=== PATIENT | female | born 1990 | race Two or more races ===

== ENCOUNTER 2024-04-04 11:04 | Emergency (ER) | payer OTHER ==
[~2024-04-04] VITALS: Ht 157.5 cm; Wt 74.1 kg
--- NOTE | 2024-04-04 11:24 | ED.PDOC ---
GI ASSESSMENT HPI Comments HPI: Poor Historian. 33-year-old female presents to the emergency department for evaluation of one day history of epigastric pain nonradiating intermittent. No particular alleviating or precipitating factors. Never had this kind of pain before. Denies any associated nausea or vomiting. Denies any chest pain or shortness of breath. Denies any . Vitals: respiratory rate 16, SpO2 of 98%RA, pulse rate of 76, and a blood pressure of 133/44 PMHx: pre-DM PSHx: denies REVIEW OF SYSTEMS: CONSTITUTIONAL: Denies acute: fever, diaphoresis, chills, generalized weakness. HEAD: Denies acute: headache, photophobia Eyes: Denies acute: Double vision, vision loss, eye pain, eye discharge. EARS: Denies acute: tinnitus, hearing loss, ear discharge, ear pain, THROAT: Denies acute: sore throat, swelling, difficulty swallowing , pain with swallowing, change in voice. NECK: Denies acute: neck pain, neck swelling, stiff neck. HEART: Denies acute : chest pain, palpitations, LUNGS: Denies acute: SOB, wheezing, cough, hemoptysis ABDOMEN: Denies acute: Nausea, Vomiting, melena , hematemesis, hematochezia SKIN: Denies acute: rash, redness, lesions, itchiness. EXTREMITIES: Denies acute: calf pain, numbness, tingling, weakness, denies pain in extremity. Denies acute: Low back pain. Neuro: Denies acute: focal neurological deficit, motor or sensory focal neurological deficit, tremors, seizure like activity, confusion, dizziness, change in mental status, loss of bowel or bladder function, cauda equina like symptoms. : Denies acute: dysuria, hematuria, flank pain, increase in urinary frequency. PSYCH: Denies acute: hallucination, suicidal ideation, homicidal ideation. FEMALE: Denies acute: abnormal vaginal bleeding, foul odor, unusual discharge. PHYSICAL EXAM: General: no acute distress, awake and alert. Head: normocephalic, atraumatic. Neck: supple, trachea is midline, no swelling. Throat: Normal phonation. Eyes:, no erythema, no purulent discharge, no proptosis, no icterus. Heart: regular rate, regular rhythm, no significant murmur appreciated. Lungs: no apparent respiratory distress, Able to speak in full sentences. No wheezing, no rhonchi, no crackles. No stridors Clear to auscultation bilaterally. Abdomen: Epigastric tender to palpation, non distended, soft, no guarding, no rebound, + bowel sounds. Neuro: Awake, Alert, oriented to name, self, situation, follows commands GCS=15. Speech is normal. Skin: no petechia, no purpura, no cyanosis, non-pale, not jaundice. Lower extremities: --no - Pitting edema no deformity, no focal swelling, no calf TTP. Makes eye contact. moves all four extremities. Face: no apparent facial droop. Ambulating in the ED independently. Time Seen by MD: 11:20 Reviewed Notes: Nurses Notes, Medications, Allergies Allergies: Coded Allergies: No Known Drug Allergy (Verified Allergy, Unknown, 04/04/24) Information Source: Patient Was a procedure done? Was a procedure done?: No GI differential Dx Differential Diagnosis: Other (DDX include Diverticulitis, colitis, gastroenteritis, acute abdomen, SBO, enteritis, constipation, volvulus, appendicitis, Gallbladder disease, choledocolithiasis, ascending cholangitis, pancreatitis, intraAbdominal mass/neoplasm, hepatitis, UTI, pylonephritis, kidney stone, aneurysm, dissection, Inflammatory bowel disease, gastroparesis, ischemic bowel, ovarian torsion, ovarian cyst/mass, tubo-ovarian abscess, , ectopic , PID, STD.) X-Ray, Labs, Meds, VS Vital Signs Date Time Temp Pulse Resp B/P (MAP) Pulse Ox O2 Delivery O2 Flow Rate FiO2 04/04/24 20:17 98.3 74 16 138/99 (112) 100 98.3 04/04/24 19:47 74 16 100 Room Air* 0 21 04/04/24 18:40 72 16 98 Room Air 04/04/24 18:40 98.7 72 16 125/83 (97) 98 98.7 04/04/24 11:26 98.1 76 16 133/94 (107) 98 Lab Test 04/04/24 11:44 04/04/24 11:22 Range/Units White Blood Count 15.1 H 4.4-10.8 10^3/uL Red Blood Count 4.88 4.0-5.20 10^6/uL Hemoglobin 12.8 12.2-16.2 g/dL Hematocrit 39.2 36.0-46.0 % Mean Corpuscular Volume 80.3 80.0-100.0 fL Mean Corpuscular Hemoglobin 26.1 L 28.0-32.0 pg Mean Corpuscular Hemoglobin Concent 32.5 32.0-36.0 g/dL Red Cell Distribution Width 13.9 11.8-14.3 % Platelet Count 427 140-450 10^3/uL Mean Platelet Volume 7.9 6.9-10.8 fL Neutrophils (%) (Auto) 80.7 H 37.0-80.0 % Lymphocytes (%) (Auto) 11.9 10.0-50.0 % Monocytes (%) (Auto) 6.5 0.0-12.0 % Eosinophils (%) (Auto) 0.6 0.0-7.0 % Basophils (%) (Auto) 0.3 0.0-2.0 % Neutrophils # (Auto) 12.2 H 1.6-8.6 10 ^3/uL Lymphocytes # (Auto) 1.8 0.4-5.4 10 ^3/uL Monocytes # (Auto) 1.0 0-1.3 10 ^3/uL Eosinophils # (Auto) 0.1 0-0.8 10 ^3/uL Basophils # (Auto) 0 0-0.2 10 ^3/uL Nucleated Red Blood Cells 0.0 % Sodium Level 136 136-145 mmol/L Potassium Level 3.7 3.5-5.1 mmol/L Chloride Level 105 98-107 mmol/L Carbon Dioxide Level 25 20-31 mmol/L Anion Gap 6 5-15 Blood Urea Nitrogen 9 9-23 mg/dL Creatinine 0.59 0.550-1.02 mg/dL Glomerular Filtration Rate Calc 122 >90 mL/min BUN/Creatinine Ratio 15.3 10.0-20.0 Serum Glucose 107 H 74-106 mg/dL Lactic Acid Level 1.5 0.4-2.0 mmol/L Calcium Level 9.8 8.7-10.4 mg/dL Total Bilirubin 0.4 0.2-1.0 mg/dL Aspartate Amino Transferase (AST) 266 H 13-40 U/L Alanine Aminotransferase (ALT) 143 H 7-40 U/L Alkaline Phosphatase 130 H 46-116 U/L Troponin I High Sensitivity < 3 L </=34 ng/L Total Protein 8.1 5.7-8.2 g/dL Albumin 4.7 3.2-4.8 g/dL Lipase 46 12-53 U/L Beta HCG, Quantitative 0.2 L 1.5-4.2 mIU/mL Urine Color Light-yellow Yellow Urine Clarity Clear Clear Urine pH 5.5 5.0-9.0 Urine Specific [place] 1.014 1.001-1.035 Urine Protein Negative Negative Urine Ketones Negative Negative Urine Blood Negative Negative /uL Urine Nitrite Negative Negative Urine Bilirubin Negative Negative Urine Urobilinogen Normal Negative mg/dL Urine Leukocyte Esterase Negative Negative /uL Urine RBC <1 0 - 4 /hpf Urine WBC 1 0 - 5 /hpf Urine Squamous Epithelial Cells Few <5 /hpf Urine Bacteria Few H None Seen /hpf Urine Mucus Few None Seen Urine Glucose Normal Normal mg/dL Current Medications Medications (Trade) Dose Ordered Sig/Blanco Route Start Time Stop Time Status Last Admin Acetaminophen/ Hydrocodone Bitart (Bodfish 5/325MG Tab) 1 tab ONCE ONCE PO 04/04/24 17:15 04/04/24 19:35 DC 04/04/24 20:12 Pantoprazole Sodium (Protonix) 40 mg ONCE ONCE IV 04/04/24 17:15 04/04/24 19:35 DC 04/04/24 20:12 [place] [id number] Ph: [phone] DIAGNOSTIC IMAGING Diagnostic Imaging Report : [id number] Signed PATIENT: DADA MENDEZ ACCT: [id number] UNIT: [id number] : 1990 LOC: ER ROOM / BED: / AGE / SEX: 33 / F ADM STATUS: REG ER SERVICE 1124 ORDERING PHYSICIAN: MICHAEL CH DO PROCEDURE(s): ABDL - ABDOMEN LIMITED REASON: epig pain ORDER NUMBER(s): [id number], ACCESSION NUMBER(s): [id number] INDICATION: epig pain TECHNIQUE: Multiple real-time sonographic images were obtained of the right upp er quadrant. COMPARISON: None FINDINGS: The liver demonstrates increased echotexture without focal mass lesions. The liver measures 18.4 cm. There is no intrahepatic or extrahepatic ductal dilatation. The common duct measures 0.2 cm. Cholelithiasis. The gallbladder wall measures 0.3 cm and is within normal limits. The right kidney measures 11.2 cm. The right kidney is normal in contour, size, and shape. The echogenicity is normal. There is no hydronephrosis. The pancreas is not well visualized due to overlying bowel gas. IMPRESSION: Cholelithiasis. Hepatic steatosis and hepatomegaly. ATED BY: NASIM GODOY MD DICTATED DATE/TIME: 04/04/241213 SIGNED BY: NASIM GODOY MD SIGNED DATE/TIME: 04/04/241213 CC: Time of 1ST Reevaluation: 11:20 Reevaluation 1ST: Unchanged Time of 2ND Reevaluation: 17:04 (The case was discussed with the [facility] admitting team (HPI, physical exam, labs and diagnostic tests that were available at the time of disposition, ED course, treatment plan) on the phone. They agreed to transfer the patient to their service and assume care of this patient from this point forward. dr.- Rodriguez.Authorization number [id number] ) Reevaluation 2ND: Improved Patient Education/Counseling: Diagnosis, Treatment Family Education/Counseling: No Family Present Comments Patient presented with the above HPI.---abdominal pain---workup was initiated. patient was found with the above mentioned diagnosis. Patient was given: Protonix, Bodfish, Zosyn Patient ED course and VS have been stabilized. Patient has been reassessed in the ED and remained in a stable condition. Pertinent incidental findings were discussed with the patient and/or family. Patient/family voices understanding and is agreeable with plan. Patient has been observed in the ED adequate length of time to insure improvement/stability. patient was transferred to [facility] per insurance requirements for further evaluation and treatment of their presentation. All the reports of any imaging studies that were ordered by myself were reviewed by myself. Departure 1 Departure Time of Disposition: 11:54 Impression: Primary Impression: Epigastric pain Additional Impression: Elevated LFTs Disposition: ADMITTED INPATIENT Admit to: [facility] Condition: Guarded Discharged With: Self Critical Care Note Critical Care Time?: No I personally scribed for MICHAEL CH DO ([email or web address]) on 11/13/24 at 11:24. Electronically submitted by Sunny Donaldson ([email or web address]). I personally scribed for MICHAEL CH DO ([email or web address]) on 04/04/24 at 11:25. Electronically submitted by Sunny Donaldson ([email or web address]). I personally scribed for MICHAEL CH DO ([email or web address]) on 04/04/24 at 12:06. Electronically submitted by Sunny Donaldson ([email or web address]). I personally scribed for MICHAEL CH DO ([email or web address]) on 04/04/24 at 12:29. Electronically submitted by Sunny Donaldson ([email or web address]). I personally scribed for MICHAEL CH DO ([email or web address]) on 04/04/24 at 20:21. Electronically submitted by Sunny Donaldson ([email or web address]). MICHAEL CH DO Apr 04, 2024 11:24
[2024-04-04 12:01] LABS: Urine Bacteria FEW /hpf (None Seen); Urine Blood Negative /uL (Negative); Urine Clarity Clear (Clear); Urine Color Light-Yellow (Yellow); Urine Mucus FEW (None Seen); Urine Protein, UAD Negative (Negative); Urine Specific Gravity 1.014 (1.001-1.035); Urine Urobilinogen Normal (Negative); Urine WBC 1 /hpf (0 - 5); Urine pH 5.5 (5.0-9.0)
[2024-04-04 12:13] LABS: Basophils # (auto) 0 10 ^3/uL (0-0.2); Basophils % (auto) 0.3 % (0.0-2.0); Eosinophils # (auto) 0.1 10 ^3/uL (0-0.8); Eosinophils % (auto) 0.6 % (0.0-7.0); Hematocrit 39.2 % (36.0-46.0); Hemoglobin 12.8 g/dL (12.2-16.2); Lymphocytes # (auto) 1.8 10 ^3/uL (0.4-5.4); Lymphocytes % (auto) 11.9 % (10.0-50.0); Mean Corpuscular Hemoglobin 26.1 pg (28.0-32.0); Mean Corpuscular Hgb Conc. 32.5 g/dL (32.0-36.0); Mean Corpuscular Volume 80.3 fL (80.0-100.0); Monocytes % (auto) 6.5 % (0.0-12.0); Neutrophils # (auto) 12.2 10 ^3/uL (1.6-8.6); Neutrophils % (auto) 80.7 % (37.0-80.0); Platelet Count (auto) 427 10^3/uL (140-450); Red Blood Cells 4.88 10^6/uL (4.0-5.20); Red Cell Distribution Width 13.9 % (11.8-14.3); White Blood Cell 15.1 10^3/uL (4.4-10.8)
--- NOTE | 2024-04-04 12:16 | DVH ---
INDICATION: epig pain TECHNIQUE: Multiple real-time sonographic images were obtained of the right upper quadrant. COMPARISON: None FINDINGS: The liver demonstrates increased echotexture without focal mass lesions. The liver measure s 18.4 cm. There is no intrahepatic or extrahepatic ductal dilatation. The common duct measures 0.2 cm. Cholelithiasis. The gallbladder wall measures 0.3 cm and is within normal limits. The right kidney measures 11.2 cm. The right kidney is normal in contour, size, and shape. The echo genicity is normal. There is no hydronephrosis. The pancreas is not well visualized due to overlying bowel gas. IMPRESSION: Cholelithiasis. Hepatic steatosis and hepatomegaly.
[2024-04-04 12:32] LABS: Alanine Aminotransferase 143 U/L (7-40); Albumin 4.7 g/dL (3.2-4.8); Alkaline Phosphatase 130 U/L (46-116); Anion Gap 6 (5-15); Aspartate Aminotransferase 266 U/L (13-40); BUN/Creatinine Ratio 15.3 (10.0-20.0); Bilirubin, Total 0.4 mg/dL (0.2-1.0); Blood Urea Nitrogen 9 mg/dL (9-23); Calcium 9.8 mg/dL (8.7-10.4); Carbon Dioxide 25 mmol/L (20-31); Chloride 105 mmol/L (98-107); Glucose 107 mg/dL (74-106); Potassium 3.7 mmol/L (3.5-5.1); Sodium 136 mmol/L (136-145); Total Protein 8.1 g/dL (5.7-8.2)
[2024-04-04 12:37] LABS: Lipase 46 U/L (12-53)
[2024-04-04] MEDS: PIPERACILLIN-TAZOB 3.375GM 100 ML IV ONE (12:45)
[2024-04-04 19:47] VITALS: PULSE 74; RESP 16; O2SAT 100
[2024-04-04] MEDS: HYDROcodone-ACET 5/325MG TAB PO ONE (20:12)
[2024-04-04] MEDS: PANTOPRAZOLE 40 MG/10 ML VIAL INJ IV ONE (20:12)
[2024-04-04 20:17] VITALS: BP 138/99; PULSE 74; RESP 16; TEMP 98.3; O2SAT 100
== END 2024-04-04 20:35 | disposition short-term general hospital (02) ==
LOC: ER 11:04
DX: R10.13 Epigastric pain (principal); R10.2 Pelvic and perineal pain; R79.89 Other specified abnormal findings of blood chemistry
CPT/HCPCS: 36415; 76705; 80053; 81001; 83605; 83690; 84484; 84702; 85025; 96374; 99285; J2470; J2543